=== PATIENT | male | born 1945 | race Caucasian/White ===

== ENCOUNTER 2019-11-28 10:57 | Inpatient (IN) | payer OTHER, SELFPAY ==
[~2019-11-28] VITALS: Ht 172.7 cm; Wt 58.5 kg
[2019-11-28 11:14] VITALS: Ht 172.7 cm; Wt 58.5 kg
[2019-11-28] MEDS ORDERED: ASPIRIN FOR CHI81 M1 PO (11:30)
[2019-11-28] MEDS ORDERED: AMLODIPINE BESYL5 M2 PO (11:30)
[2019-11-28] MEDS ORDERED: ACETAMINOPHEN325 M3 PO (11:30)
[2019-11-28] MEDS ORDERED: HYDROCHLOROTHIA25 MG PO (11:31)
[2019-11-28] MEDS ORDERED: ATORVASTATIN CA20 M1 PO (11:31)
[2019-11-28] MEDS ORDERED: CASODEX50 MG PO (11:31)
[2019-11-28] MEDS ORDERED: MORPHABOND ER30 MG PO (11:32)
[2019-11-28] MEDS ORDERED: TAMSULOSIN HCL0.4 MG PO (11:32)
[2019-11-28 11:47] LABS: BASOPHIL % 0.1 % (0-2); PLATELET COUNT 146 x10^3mcL (130-400); RED CELL DISTRIBUTION WIDTH 13.9 % (11.5-14.5)
[2019-11-28 12:15] LABS: ALKALINE PHOSPHATASE 48 U/L (46-116); ALT/SGPT 42 U/L (16-63); AST/SGOT 70 U/L (15-37); BILIRUBIN TOTAL 0.3 mg/dL (0.20-1.00); C REACTIVE PROTEIN 9.5 mg/dL (<=0.9); CALCIUM 8.3 mg/dL (8.5-10.1); CARBON DIOXIDE 23.9 mmol/L (21-32); CHLORIDE SERUM 97 mmol/L (98-107); CREATININE SERUM 3.7 mg/dL (0.7-1.3); GLUCOSE SERUM 142 mg/dL (74-106); LACTIC DEHYDROGENASE (LDH) 240 U/L (100-190); POTASSIUM SERUM 3.7 mmol/L (3.5-5.1); SODIUM SERUM 133 mmol/L (136-145); TOTAL PROTEIN, SERUM 6.7 g/dL (6.4-8.2)
[2019-11-28 12:19] LABS: ALBUMIN 3.1 g/dL (3.4-5.0)
[2019-11-28 12:42] LABS: microscopic required? YES; urine erythrocyte 3+ (NEGATIVE)
[2019-11-28 15:53] VITALS: BP 88/45
[2019-11-28 17:02] VITALS: BP 93/44
[2019-11-28 17:45] VITALS: BP 97/30
[2019-11-28 20:30] VITALS: BP 93/47
[2019-11-29 04:52] VITALS: BP 100/45
[2019-11-29 08:00] VITALS: BP 112/63
[2019-11-29 08:59] LABS: BASOPHIL % 0.1 % (0-2); PLATELET COUNT 150 x10^3mcL (130-400); RED CELL DISTRIBUTION WIDTH 13.7 % (11.5-14.5)
[2019-11-29 09:27] LABS: ALKALINE PHOSPHATASE 52 U/L (46-116); ALT/SGPT 49 U/L (16-63); AST/SGOT 108 U/L (15-37); BILIRUBIN TOTAL 0.4 mg/dL (0.20-1.00); CALCIUM 8.8 mg/dL (8.5-10.1); CARBON DIOXIDE 22.2 mmol/L (21-32); CHLORIDE SERUM 99 mmol/L (98-107); CREATININE SERUM 3.3 mg/dL (0.7-1.3); GLUCOSE SERUM 102 mg/dL (74-106); PHOSPHOROUS 4.2 mg/dL (2.5-4.9); POTASSIUM SERUM 4.8 mmol/L (3.5-5.1); SODIUM SERUM 135 mmol/L (136-145); TOTAL PROTEIN, SERUM 7.1 g/dL (6.4-8.2)
[2019-11-29 09:36] LABS: ALBUMIN 3.1 g/dL (3.4-5.0)
[2019-11-29 09:40] LABS: IRON 14 ug/dL (65-170); TOTAL IRON BINDING CAPACITY 150 ug/dL (250-450)
[2019-11-29 12:45] VITALS: BP 96/43
[2019-11-29 17:00] VITALS: BP 107/59
[2019-11-29 21:00] VITALS: BP 96/56
[2019-11-30 05:45] VITALS: BP 105/56
[2019-11-30 06:26] LABS: CALCIUM 8.6 mg/dL (8.5-10.1); CARBON DIOXIDE 24.4 mmol/L (21-32); CHLORIDE SERUM 102 mmol/L (98-107); CREATININE SERUM 2.9 mg/dL (0.7-1.3); GLUCOSE SERUM 94 mg/dL (74-106); POTASSIUM SERUM 4.1 mmol/L (3.5-5.1); SODIUM SERUM 136 mmol/L (136-145)
[2019-11-30 06:43] LABS: BASOPHIL % 0.1 % (0-2); PLATELET COUNT 150 x10^3mcL (130-400)
[2019-11-30 08:00] VITALS: BP 111/54; BP 111/76
[2019-11-30 16:30] VITALS: BP 106/67
[2019-11-30 22:00] VITALS: BP 118/62
[2019-12-01 06:42] VITALS: BP 126/65
[2019-12-01 08:30] VITALS: BP 134/64
[2019-12-01 12:01] VITALS: BP 121/59
[2019-12-01 15:19] LABS: BASOPHIL % 0.1 % (0-2); PLATELET COUNT 177 x10^3mcL (130-400); RED CELL DISTRIBUTION WIDTH 13.8 % (11.5-14.5)
[2019-12-01 15:26] LABS: CALCIUM 8.6 mg/dL (8.5-10.1); CARBON DIOXIDE 26.1 mmol/L (21-32); CHLORIDE SERUM 107 mmol/L (98-107); CREATININE SERUM 1.8 mg/dL (0.7-1.3); GLUCOSE SERUM 113 mg/dL (74-106); POTASSIUM SERUM 4.1 mmol/L (3.5-5.1); SODIUM SERUM 143 mmol/L (136-145)
[2019-12-01 16:01] VITALS: BP 125/63
[2019-12-01 20:05] VITALS: BP 135/69
[2019-12-02 06:40] VITALS: BP 138/69
[2019-12-02 06:54] LABS: PLATELET COUNT 202 x10^3mcL (130-400); RED CELL DISTRIBUTION WIDTH 13.9 % (11.5-14.5)
[2019-12-02 07:23] LABS: CALCIUM 8.9 mg/dL (8.5-10.1); CARBON DIOXIDE 24.2 mmol/L (21-32); CHLORIDE SERUM 108 mmol/L (98-107); CREATININE SERUM 1.6 mg/dL (0.7-1.3); GLUCOSE SERUM 145 mg/dL (74-106); POTASSIUM SERUM 3.9 mmol/L (3.5-5.1); SODIUM SERUM 145 mmol/L (136-145)
[2019-12-02 07:27] LABS: BASOPHIL % 0 % (0-2)
[2019-12-02 10:04] LABS: ERYTHROCYTE SED RATE 67 mm/hr (0-20)
[2019-12-02 13:29] VITALS: BP 130/68
[2019-12-02 16:30] VITALS: BP 131/67
[2019-12-02 19:20] VITALS: BP 138/71
[2019-12-03 06:05] VITALS: BP 140/70
[2019-12-03 19:20] VITALS: BP 142/75
[2019-12-03 21:30] VITALS: BP 140/70
[2019-12-04 06:54] VITALS: BP 130/67
[2019-12-04 06:59] LABS: CARBON DIOXIDE 25.7 mmol/L (21-32); CHLORIDE SERUM 111 mmol/L (98-107); CREATININE SERUM 1.3 mg/dL (0.7-1.3); GLUCOSE SERUM 146 mg/dL (74-106); POTASSIUM SERUM 3.6 mmol/L (3.5-5.1); SODIUM SERUM 148 mmol/L (136-145)
[2019-12-04 07:00] LABS: BASOPHIL % 0.1 % (0-2); PLATELET COUNT 303 x10^3mcL (130-400); RED CELL DISTRIBUTION WIDTH 13.9 % (11.5-14.5)
[2019-12-04 08:45] VITALS: BP 146/77
[2019-12-04 12:47] VITALS: BP 146/72
[2019-12-04 17:45] VITALS: BP 139/76
[2019-12-04 20:00] VITALS: BP 149/71
[2019-12-05 05:48] VITALS: BP 152/79
[2019-12-05 06:54] LABS: BASOPHIL % 0.1 % (0-2); PLATELET COUNT 325 x10^3mcL (130-400)
[2019-12-05 07:10] LABS: CARBON DIOXIDE 26.4 mmol/L (21-32); CHLORIDE SERUM 111 mmol/L (98-107); CREATININE SERUM 1.2 mg/dL (0.7-1.3); GLUCOSE SERUM 105 mg/dL (74-106); POTASSIUM SERUM 4.3 mmol/L (3.5-5.1); SODIUM SERUM 147 mmol/L (136-145)
[2019-12-05 08:12] VITALS: BP 141/76
[2019-12-05 13:29] VITALS: BP 141/76
[2019-12-05 17:48] VITALS: BP 147/80
[2019-12-05 20:00] VITALS: BP 155/80
[2019-12-06 06:17] VITALS: BP 153/82
[2019-12-06 06:32] LABS: BASOPHIL % 0.1 % (0-2); PLATELET COUNT 328 x10^3mcL (130-400); RED CELL DISTRIBUTION WIDTH 13.9 % (11.5-14.5)
[2019-12-06 06:44] LABS: CALCIUM 8.6 mg/dL (8.5-10.1); CARBON DIOXIDE 27.5 mmol/L (21-32); CHLORIDE SERUM 112 mmol/L (98-107); CREATININE SERUM 1.1 mg/dL (0.7-1.3); GLUCOSE SERUM 129 mg/dL (74-106); POTASSIUM SERUM 3.5 mmol/L (3.5-5.1); SODIUM SERUM 148 mmol/L (136-145)
[2019-12-06 09:03] VITALS: BP 150/79
[2019-12-06 09:04] VITALS: BP 150/79
[2019-12-06 13:27] VITALS: BP 146/78
[2019-12-06 21:00] VITALS: BP 158/80
[2019-12-07 06:46] LABS: BASOPHIL % 0.1 % (0-2); PLATELET COUNT 381 x10^3mcL (130-400); RED CELL DISTRIBUTION WIDTH 14.2 % (11.5-14.5)
[2019-12-07 06:57] VITALS: BP 164/80
[2019-12-07 07:08] LABS: ALKALINE PHOSPHATASE 74 U/L (46-116); ALT/SGPT 63 U/L (16-63); AST/SGOT 40 U/L (15-37); BILIRUBIN TOTAL 0.3 mg/dL (0.20-1.00); CALCIUM 8.9 mg/dL (8.5-10.1); CHLORIDE SERUM 112 mmol/L (98-107); CREATININE SERUM 1.1 mg/dL (0.7-1.3); GLUCOSE SERUM 108 mg/dL (74-106); POTASSIUM SERUM 3.4 mmol/L (3.5-5.1); SODIUM SERUM 149 mmol/L (136-145); TOTAL PROTEIN, SERUM 6.2 g/dL (6.4-8.2)
[2019-12-07 08:30] VITALS: BP 150/81
[2019-12-07 12:30] VITALS: BP 154/77
[2019-12-07 17:44] VITALS: BP 152/81
[2019-12-07 19:35] VITALS: BP 147/84
[2019-12-08 06:23] VITALS: BP 151/81
[2019-12-08 08:43] VITALS: BP 151/67
[2019-12-09 07:12] LABS: CARBON DIOXIDE 27.6 mmol/L (21-32); CHLORIDE SERUM 110 mmol/L (98-107); CREATININE SERUM 1.2 mg/dL (0.7-1.3); GLUCOSE SERUM 150 mg/dL (74-106); POTASSIUM SERUM 3.5 mmol/L (3.5-5.1); SODIUM SERUM 148 mmol/L (136-145)
[2019-12-09 08:01] LABS: BASOPHIL % 0.2 % (0-2); RED CELL DISTRIBUTION WIDTH 13.2 % (11.5-14.5)
[2019-12-09 08:09] LABS: PLATELET COUNT 431 x10^3mcL (130-400)
[2019-12-09 09:14] VITALS: BP 147/78
[2019-12-09 11:00] VITALS: BP 147/78
[2019-12-09 13:25] VITALS: BP 145/78
[2019-12-09 18:30] VITALS: BP 148/80
[2019-12-10 06:30] VITALS: BP 151/80
[2019-12-10 07:27] LABS: CALCIUM 9.4 mg/dL (8.5-10.1); CARBON DIOXIDE 26.7 mmol/L (21-32); CHLORIDE SERUM 109 mmol/L (98-107); CREATININE SERUM 1.3 mg/dL (0.7-1.3); GLUCOSE SERUM 104 mg/dL (74-106); POTASSIUM SERUM 3.5 mmol/L (3.5-5.1); SODIUM SERUM 147 mmol/L (136-145)
[2019-12-10 08:57] LABS: BASOPHIL % 0.2 % (0-2); RED CELL DISTRIBUTION WIDTH 13.4 % (11.5-14.5)
[2019-12-10 08:58] LABS: PLATELET COUNT 419 x10^3mcL (130-400)
[2019-12-10 11:58] VITALS: BP 141/76
[2019-12-10 16:15] VITALS: BP 147/89
[2019-12-10 20:00] VITALS: BP 146/77
[2019-12-11 05:50] VITALS: BP 142/76
[2019-12-11 08:45] VITALS: BP 140/71
[2019-12-12 07:05] LABS: BASOPHIL % 1.1 % (0-2); PLATELET COUNT 259 x10^3mcL (130-400)
[2019-12-12 07:08] LABS: RED CELL DISTRIBUTION WIDTH 14.9 % (11.5-14.5)
[2019-12-12 07:35] VITALS: BP 146/82
[2019-12-12 08:20] LABS: CARBON DIOXIDE 24.5 mmol/L (21-32); CHLORIDE SERUM 107 mmol/L (98-107); CREATININE SERUM 1.7 mg/dL (0.7-1.3); GLUCOSE SERUM 185 mg/dL (74-106); POTASSIUM SERUM 3.5 mmol/L (3.5-5.1); SODIUM SERUM 146 mmol/L (136-145)
[2019-12-12 12:15] VITALS: BP 130/74
[2019-12-12 18:38] VITALS: BP 122/70
[2019-12-12 21:25] VITALS: BP 122/72
[2019-12-13 05:46] VITALS: BP 123/67
[2019-12-13 10:21] VITALS: BP 119/59
[2019-12-13 13:37] VITALS: BP 129/67
[2019-12-13 18:49] VITALS: BP 123/62
[2019-12-13 22:43] VITALS: BP 137/68
[2019-12-14 06:44] VITALS: BP 132/68
[2019-12-14 07:02] LABS: PLATELET COUNT 272 x10^3mcL (130-400)
[2019-12-14 07:18] LABS: BASOPHIL % 0 % (0-2); RED CELL DISTRIBUTION WIDTH 14.9 % (11.5-14.5)
[2019-12-14 07:32] LABS: CALCIUM 8.8 mg/dL (8.5-10.1); CHLORIDE SERUM 106 mmol/L (98-107); CREATININE SERUM 2.5 mg/dL (0.7-1.3); GLUCOSE SERUM 142 mg/dL (74-106); POTASSIUM SERUM 4.8 mmol/L (3.5-5.1); SODIUM SERUM 144 mmol/L (136-145)
[2019-12-14 07:56] VITALS: BP 113/69
[2019-12-14 12:40] VITALS: BP 132/73
[2019-12-14 18:31] VITALS: BP 140/69
[2019-12-14 21:15] VITALS: BP 130/70
[2019-12-15] VITALS (7 sets, daily range): BP systolic 116–131; BP diastolic 61–75
[2019-12-15 07:42] LABS: PLATELET COUNT 368 x10^3mcL (130-400)
[2019-12-15 08:01] LABS: CALCIUM 8.8 mg/dL (8.5-10.1); CARBON DIOXIDE 25.9 mmol/L (21-32); CHLORIDE SERUM 104 mmol/L (98-107); CREATININE SERUM 3.8 mg/dL (0.7-1.3); GLUCOSE SERUM 137 mg/dL (74-106); POTASSIUM SERUM 4.6 mmol/L (3.5-5.1); SODIUM SERUM 144 mmol/L (136-145)
[2019-12-15 08:28] LABS: ALKALINE PHOSPHATASE 111 U/L (46-116); ALT/SGPT 70 U/L (16-63); AST/SGOT 54 U/L (15-37); BILIRUBIN TOTAL 0.7 mg/dL (0.20-1.00); CALCIUM 8.8 mg/dL (8.5-10.1); CARBON DIOXIDE 25.3 mmol/L (21-32); CHLORIDE SERUM 103 mmol/L (98-107); CREATININE SERUM 3.7 mg/dL (0.7-1.3); GLUCOSE SERUM 132 mg/dL (74-106); PHOSPHOROUS 7.5 mg/dL (2.5-4.9); POTASSIUM SERUM 4.6 mmol/L (3.5-5.1); SODIUM SERUM 144 mmol/L (136-145); TOTAL PROTEIN, SERUM 6.6 g/dL (6.4-8.2)
[2019-12-15 08:32] LABS: RED CELL DISTRIBUTION WIDTH 14.9 % (11.5-14.5)
[2019-12-15 08:42] LABS: ALBUMIN 1.9 g/dL (3.4-5.0)
[2019-12-15 12:35] LABS: BAND NEUTROPHIL 2 % (0-10); SEGMENTED NEUTROPHILS 92 % (37-75)
[2019-12-15 12:36] LABS: MONOCYTE 1 % (0-7); MYELOCYTE 2 % (0-2); PLATELET MORPHOLOGY LARGE PLATELET SEEN; rbc morphology (normal/abnorm) ABNORMAL (NORMAL)
[2019-12-16 06:40] VITALS: BP 122/48
[2019-12-16 11:45] VITALS: BP 120/63
[2019-12-16 13:52] VITALS: BP 120/63
[2019-12-16 17:31] VITALS: BP 114/64
[2019-12-16 20:00] VITALS: BP 109/50
[2019-12-17 06:35] VITALS: BP 116/43
[2019-12-17 08:51] VITALS: BP 100/37
[2019-12-17 17:00] VITALS: BP 103/49
== END 2019-12-17 23:59 | disposition expired | DRG 177 ==
LOC: ED 10:57 → DU 13:34
PROVIDERS: Internal Medicine; Specialist; ADMIT Internal Medicine
DX: U07.1 COVID-19 (principal); J12.89 Other viral pneumonia; J96.01 Acute respiratory failure with hypoxia; N17.0 Acute kidney failure with tubular necrosis; N13.9 Obstructive and reflux uropathy, unspecified; D72.829 Elevated white blood cell count, unspecified; E83.39 Other disorders of phosphorus metabolism; E78.5 Hyperlipidemia, unspecified; D64.9 Anemia, unspecified; Z66 Do not resuscitate; N18.9 Chronic kidney disease, unspecified; I12.9 Hypertensive chronic kidney disease with stage 1 through stage 4 chronic kidney disease, or unspecified chronic kidney disease; R00.1 Bradycardia, unspecified; M19.90 Unspecified osteoarthritis, unspecified site; Z85.46 Personal history of malignant neoplasm of prostate; Z86.19 Personal history of other infectious and parasitic diseases; Z85.51 Personal history of malignant neoplasm of bladder; Z87.891 Personal history of nicotine dependence; Z79.899 Other long term (current) drug therapy
CPT/HCPCS: 36600; 83880; 84439; 85378; 87804; 97112-GP; G0378; J0456; J0696; J1644; J1650; J1956; J2270; J2405; J2543; J2920; J3590; J7030; J7040; J7050; J7060; J8999; Q0092